=== PATIENT | female | born 2000 | race African-American/Black ===

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

== ENCOUNTER 2023-11-09 | Observation (INO) | payer SELFPAY | END 2023-11-10 11:50 | disposition left against medical advice (07) | PROVIDERS: ADMIT Internal Medicine | DX: G43.909 Migraine, unspecified, not intractable, without status migrainosus (principal); J45.909 Unspecified asthma, uncomplicated ==